=== PATIENT | female | born 1955 | race Two or more races ===

== ENCOUNTER 2019-10-22 17:28 | Emergency (ER) | payer MEDICARE, MEDICAID ==
[~2019-10-22] VITALS: Ht 157.5 cm; Wt 44.8 kg
--- NOTE | 2019-10-22 17:47 | NUR ---
PT CAME IN CO OF BILAT FLANK PAIN, ABD PAIN, AND EPIGASTRIC PAIN. 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 IT IS MAKING HER REALLY WEAK". PT AMBULATED TO BATHROOM WITH NO ASSITANCE TO PROVIDE. UA. SON IS BEDSIDE.
[2019-10-22] MEDS ORDERED: MAALOX/HYOSCYAMINE/LIDOCAINE 45 ML BTL ONE (17:56)
[2019-10-22] MEDS ORDERED: MAALOX/HYOSCYAMINE/LIDOCAINE 45 ML BTL PO ONE (18:00)
[2019-10-22 18:22] LABS: MICROSCOPIC INDICATED
[2019-10-22 18:52] LABS: MEAN CORPUSCULAR HEMOGLOBIN 27.2 pg (27.0-34.8); MEAN CORPUSCULAR HGB CONC 32.1 g/dL (32.4-35.8); MEAN CORPUSCULAR VOLUME 84.9 fL (80-100); MEAN PLATELET VOLUME 8.5 fL (7.4-10.4); PLATELET COUNT 555 x10^3/uL (130-400); RED BLOOD COUNT 4.62 x10^6/uL (3.82-5.3); RED CELL DISTRIBUTION WIDTH 14.8 % (9.6-15.2)
--- NOTE | 2019-10-22 18:56 | NUR ---
2 WARM BLANKETS PROVIDED
[2019-10-22 18:59] LABS: ALANINE AMINOTRANSFERASE 19 U/L (12-78); ALBUMIN 3.3 g/dL (3.4-5.0); ANION GAP 9 mmol/L (5-15); CALCIUM 9.3 mg/dL (8.5-10.1); CHLORIDE 98 mmol/L (98-107); CREATININE 0.98 mg/dL (0.55-1.02)
[2019-10-22 19:03] LABS: ALKALINE PHOSPHATASE 102 U/L (45-117); BILIRUBIN,TOTAL 0.4 mg/dL (0.2-1.0); TOTAL PROTEIN 8.1 g/dL (6.4-8.2); TROPONIN I < 0.015 ng/mL (0.000-0.045)
[2019-10-22 19:32] LABS: BASOPHILS # (AUTO) 0.05 x10^3/uL (0-0.1); BASOPHILS % (AUTO) 1 % (0-1); EOSINOPHILS # (AUTO) 0.06 x10^3/uL (0-0.4); EOSINOPHILS % (AUTO) 1 % (1-7); LYMPHOCYTES # (AUTO) 2.38 x10^3/uL (1-3.4); LYMPHOCYTES % (AUTO) 34 % (22-44); MD MORPH REVIEW ONLY; MONOCYTES # (AUTO) 0.57 x10^3/uL (0.2-0.8); MONOCYTES % (AUTO) 8 % (2-9); NEUTROPHILS # (AUTO) 3.87 x10^3/uL (1.8-6.8); NEUTROPHILS % (AUTO) 56 % (42-75)
[2019-10-22 19:37] LABS: ANISOCYTOSIS 1+; TARGET CELLS 1+
[2019-10-22 19:38] LABS: <PLATELET ESTIMATE> INCREASED; ACANTHOCYTES 1+; ECHINOCYTES 1+; LARGE PLATELETS 1+; SCHISTOCYTES 1+
[2019-10-22] MEDS ORDERED: CEFDINIR 300 MG CAPSULE ONE (19:42)
[2019-10-22 19:48] VITALS: BP 144/71
[2019-10-22] MEDS ORDERED: CEFDINIR 300 MG CAPSULE PO ONE (20:00)
[2019-10-22] MEDS ORDERED: SODIUM CHLORIDE 0.9% 1,000ML IVBOLUS ONE (20:00)
== END 2019-10-22 20:49 | disposition home or self-care (01) ==
LOC: ED 17:58
DX: U07.1 COVID-19 (principal); G89.29 Other chronic pain; M54.5 Low back pain; R11.2 Nausea with vomiting, unspecified; R10.13 Epigastric pain; E11.65 Type 2 diabetes mellitus with hyperglycemia; K59.00 Constipation, unspecified; I44.7 Left bundle-branch block, unspecified; Z95.0 Presence of cardiac pacemaker
CPT/HCPCS: 36415; 72110; 74022; 80053; 81001; 82962; 83690; 84484; 85025; 87635; 93005; 96360; 99285; J7030